=== PATIENT | male | born 1985 | race Caucasian/White ===

== ENCOUNTER 2017-01-31 12:53 | Emergency (ER) | payer OTHER ==
[2017-01-31 13:00] VITALS: TEMP 98.1
[2017-01-31] MEDS ORDERED: ASPIRIN 81 MG CHEWABLE TAB PO ONE (13:04)
--- NOTE | 2017-01-31 13:04 | CPEKG ---
Heart Rate: 65 RR Interval: 923 P-R Interval: 168 QRSD Interval: 88 QT Interval: 384 QTC Interval: 400 P [place]: 66 QRS [place]: 46 T Wave [place]: 16 EKG Severity - ABNORMAL ECG - EKG Impression: SINUS RHYTHM EKG Impression: PROBABLE LEFT VENTRICULAR HYPERTROPHY EKG Impression: ST ELEV, PROBABLE NORMAL EARLY REPOL PATTERN Electronically Signed By: Tho Mays 31-Jan-2017 14:01:53
[2017-01-31 13:17] LABS: % IMMATURE GRANULYOCYTES 0.3 % (0.0-1.1); ABSOLUTE IMMATURE GRANULOCYTES 0.03 10^3/uL (0.00-0.10); ADD DIFF? NO; ADD MORPH? NO; ADD SCAN? NO; ATYPICAL LYMPHOCYTE FLAG 0 (0-99); FRAGMENT RBC FLAG 0 (0-99); HEMATOCRIT 42.5 % (40.0-51.0); LEFT SHIFT FLG 0 (0-99); LIPEMIA HEMOLYSIS FLAG 90 (0-99); MEAN CELL HEMOGLOBIN 32.5 pg (27.9-34.1); MEAN CELL HEMOGLOBIN CONCENTR. 35.3 g/dL (32.4-36.7); MEAN PLATELET VOLUME 9.2 fL (8.7-11.7); PLATELET CLUMPS FLAG 0 (0-99); PLATELET COUNT 186 10^3/uL (150-400); RED BLOOD CELL COUNT 4.62 10^6/uL (4.40-6.38); RED CELL DISTRIBUTION WIDTH 11.4 % (11.5-15.2)
[2017-01-31 13:29] LABS: HEMATOCRIT 42.5 % (40.0-51.0)
--- NOTE | 2017-01-31 13:33 | EDPHY ---
H & P Stated Complaint: L substernal pain since yesterday; work up 1 mo ago for same Time Seen by Provider: 01/31/17 13:00 HPI/ROS: This patient reports chest pain as described as a dull ache sternal to left chest location intermittently for the last 2 months. He saw a primary care physician who had the impression of chest wall source of pain encouraged him to take ibuprofen near the started the symptoms but he reports ongoing symptoms with associated lightheadedness and fatigue intermittently. He has had up to 2 weeks of constant pain but this current episode and started yesterday and persists currently 3/10 intensity left chest nonradiating. He reports that the symptoms decrease when he runs 3-5 miles a day and notes no other exacerbating or alleviating factors. ROS: Constitutional: No fevers. Positive fatigue HEENT: No URI symptoms or other complaints Pulmonary: No dyspnea. No cough. No pleuritic pain. Cardiovascular: He notes that while he is supine he can see his pulse in his abdomen. He reports no leg swelling or pain. No significant heart palpitations though his heart does go fast at times attributes this to anxiety. Neuro: No complaints GI: No abdominal pain, no nausea or vomiting. : No complaints Integumentary: No skin rash or other complaints Endocrine: No diaphoresis Complete review of symptoms is otherwise negative. Source: Patient Exam Limitations: No limitations - Personal History Current Tetanus/Diphtheria Vaccine: Unsure - Medical/Surgical History PMH: Although the patient's antianxiety medications initially unknown, call to the pharmacy confirms that he takes Lexapro and several months ago in August he had a script for Valium Other PMH: none - Family History Significant Family History: No pertinent family hx - Social History Smoking Status: Current every day smoker (He reports occasional cigarettes typically 1 or 2 a week.) Alcohol Use: Occasionally Drug Use: Marijuana (Occasional marijuana use. No other drug use including no cocaine. No IV drug use) - Physical Exam Exam: General Appearance: Alert, no distress. Eyes: Pupils equal and round no pallor or injection. ENT, Mouth: Mucous membranes moist. Respiratory: There are no retractions, lungs are clear to auscultation. Mild chest wall tenderness the partially reproduces symptoms. Cardiovascular: Regular rate and rhythm. No murmur gallop rub. No JVD. No peripheral edema. Back: Patient has left rhomboid muscle tenderness that reproduces his interscapular pain. No midline tenderness. Gastrointestinal: Abdomen is soft and nontender, no masses, bowel sounds normal. Neurological: GCS 15 with no deficits Skin: Warm and dry, no rashes. Musculoskeletal: Neck is supple nontender. Extremities are symmetrical, full range of motion. Psychiatric: Mood and affect are currently normal DIFFERENTIAL DIAGNOSIS: After history and physical exam differential diagnosis was considered for chest wall pain-costochondritis versus strain, pneumonia, pneumothorax, pericarditis, congenital heart abnormality, doubt cardiac ischemia , doubt aortic pathology, PE Constitutional: Initial Vital Signs Temperature (C) 36.7 C 01/31/17 12:57 Heart Rate 72 01/31/17 12:57 Respiratory Rate 14 01/31/17 12:57 Blood Pressure 108/88 H 01/31/17 12:57 O2 Sat (%) 92 01/31/17 12:57 O2 Delivery Mode Room Air Allergies/Adverse Reactions: Penicillins Allergy (Verified 01/31/17 13:00) Home Medications: Medication Instructions Recorded Antianxiety Med 01/31/17 Propranolol HCl [Inderal 10mg (*)] 10 - 20 mg PO BID PRN #20 tab 01/31/17 Medical Decision Making - Diagnostics EKG Interpretation: 12 lead EKG performed shortly after arrival at 1:02 p.m. reveals sinus rhythm at 65 Intervals: Normal throughout ST segments: J-point elevation consistent with early repolarization in the anterior leads. [place]: Normal Overall assessment sinus rhythm with early repolarization. Findings consistent with a young patient who regularly exercises by my interpretation Imaging Results: Imaging Impressions Chest X-Ray 01/31/17 13:25 Impression: No acute pulmonary disease. Chest x-ray: Normal by my interpretation including cardiac silhouette. Imaging: I viewed and interpreted images myself ED Course/Re-evaluation: IV, monitor, aspirin 324 mg. Patient remained stable here without other complaints. Labs: Very mild leukocytosis. Metabolic panel is normal, D-dimer is normal, troponin is normal Discussion: 31-year-old male with 2 months of chest pain that improves when he exerts himself associated with chest wall tenderness. Interscapular pain associated rhomboid muscle tenderness. He is 6 foot 3 and the brings up the possibility of Marfan syndrome with vascular pathology but given his essentially normal EKG (for a young male who exercises regularly), improvement with exertion, symmetric pulses in presence of clinical findings to suggest musculoskeletal etiology & normal D-dimer troponin I do not think he is having an aortic dissection or aneurysm. He has associated anxiety and I think is mild intermittent dyspnea is attributable to his anxiety. I counseled him in some detail regarding anxiety and musculoskeletal pain. Suggestive follow up with [facility] for echocardiogram for any ongoing symptoms for further workup. We also discussed propranolol for intermittent anxiety/panic attacks. Patient understands need to return emergency department if he has any significant recurrence or worsening of his symptoms despite the treatment plan of ibuprofen Tylenol for musculoskeletal discomfort and stretching. - Data Points Laboratory Results: Laboratory Results 01/31/17 13:27 01/31/17 13:12 01/31/17 01/31/17 01/31/17 13:27 13:12 13:12 WBC RBC Hgb Hct 42.5 % % (40.0-51.0) MCV MCH MCHC RDW Plt Count MPV Neut % (Auto) Lymph % (Auto) [place] % (Auto) Eos % (Auto) Baso % (Auto) Nucleat RBC Rel Count Absolute Neuts (auto) Absolute Lymphs (auto) Absolute Monos (auto) Absolute Eos (auto) Absolute Basos (auto) Absolute Nucleated RBC Immature Gran % Immature Gran # ESR 6 MM/HR MM/HR (0-15) D-Dimer < 0.27 ug/mLFEU ug/mLFEU (0.00-0.50) Sodium 143 mEq/L mEq/L (134-144) Potassium 4.4 mEq/L mEq/L (3.5-5.2) Chloride 104 mEq/L mEq/L (97-110) Carbon Dioxide 25 mEq/l mEq/l (22-31) Anion Gap 14 mEq/L mEq/L (8-16) BUN 13 mg/dL mg/dL (7-23) Creatinine 1.0 mg/dL mg/dL (0.7-1.3) Estimated GFR > 60 Glucose 90 mg/dL mg/dL (70-100) Calcium 9.1 mg/dL mg/dL (8.5-10.4) Troponin I < 0.012 ng/mL ng/mL (0-0.034) 01/31/17 13:12 WBC 11.30 10^3/uL H 10^3/uL (3.80-9.50) RBC 4.62 10^6/uL 10^6/uL (4.40-6.38) Hgb 15.0 g/dL g/dL (13.7-17.5) Hct 42.5 % % (40.0-51.0) MCV 92.0 fL fL (81.5-99.8) MCH 32.5 pg pg (27.9-34.1) MCHC 35.3 g/dL g/dL (32.4-36.7) RDW 11.4 % L % (11.5-15.2) Plt Count 186 10^3/uL 10^3/uL (150-400) MPV 9.2 fL fL (8.7-11.7) Neut % (Auto) 79.4 % H % (39.3-74.2) Lymph % (Auto) 10.6 % L % (15.0-45.0) [place] % (Auto) 7.7 % % (4.5-13.0) Eos % (Auto) 1.7 % % (0.6-7.6) Baso % (Auto) 0.3 % % (0.3-1.7) Nucleat RBC Rel Count 0.0 % % (0.0-0.2) Absolute Neuts (auto) 8.98 10^3/uL H 10^3/uL (1.70-6.50) Absolute Lymphs (auto) 1.20 10^3/uL 10^3/uL (1.00-3.00) Absolute Monos (auto) 0.87 10^3/uL H 10^3/uL (0.30-0.80) Absolute Eos (auto) 0.19 10^3/uL 10^3/uL (0.03-0.40) Absolute Basos (auto) 0.03 10^3/uL 10^3/uL (0.02-0.10) Absolute Nucleated RBC 0.00 10^3/uL 10^3/uL (0-0.01) Immature Gran % 0.3 % % (0.0-1.1) Immature Gran # 0.03 10^3/uL 10^3/uL (0.00-0.10) ESR D-Dimer Sodium Potassium Chloride Carbon Dioxide Anion Gap BUN Creatinine Estimated GFR Glucose Calcium Troponin I Medications Given: Discontinued Medications Aspirin (Aspirin) 324 mg PO EDNOW ONE Stop: 01/31/17 13:05 Last Admin: 01/31/17 13:12 Dose: 324 mg Departure - Departure Disposition: Home, Routine, Self-Care Clinical Impression: Chest wall pain, Anxiety Condition: Good Instructions: Anxiety (ED), Chest Wall Pain (ED) Additional Instructions: Diagnosis:. Chest wall pain 2. Rhomboid muscle pain 3. Anxiety Plan: Daily stretches for 3-5 minutes of each shoulder stretch Ibuprofen and Tylenol for discomfort as needed For anxiety, could try Inderal as prescribed Consider follow-up with Dr. Saskia Fernández-senior buyer planner her further evaluation of any ongoing chest pain Return for any significant worsening despite the treatment plan Referrals: Mahogany Roth PA [Primary Care Provider] - As per Instructions Saskia Fernández MD [Medical Doctor] - As per Instructions Prescriptions: Propranolol HCl [Inderal 10mg (*)] 10 - 20 mg PO BID PRN #20 tab PRN Reason: anxiety/panic
[2017-01-31 13:36] LABS: ANION GAP 14 mEq/L (8-16); CALCIUM 9.1 mg/dL (8.5-10.4); CARBON DIOXIDE 25 mEq/l (22-31); CHLORIDE 104 mEq/L (97-110); GLOMERULAR FILTRATION RATE > 60; GLUCOSE 90 mg/dL (70-100); POTASSIUM 4.4 mEq/L (3.5-5.2); SODIUM 143 mEq/L (134-144)
[2017-01-31 13:49] LABS: TROPONIN I < 0.012 ng/mL (0-0.034)
[2017-01-31 14:37] VITALS: BP 134/84; PULSE 68; RESP 12; O2SAT 96
== END 2017-01-31 14:36 | disposition home or self-care (01) ==
LOC: CED 12:53
DX: R07.89 Other chest pain (principal); F41.9 Anxiety disorder, unspecified; F17.200 Nicotine dependence, unspecified, uncomplicated
CPT/HCPCS: 71020-PO; 80048-PO; 84484-PO; 85025-PO; 85378-PO; 85652-PO

== ENCOUNTER → 2017-10-16 | Outpatient (CLI) | payer OTHER | LOC: FIMAGING 13:34 | PROVIDERS: ATTEND Physician Assistant | DX: R07.81 Pleurodynia (principal) ==